=== PATIENT | male | born 1985 | race Caucasian/White ===

== ENCOUNTER 2016-12-07 09:36 | Emergency (ER) | payer SELFPAY ==
[~2016-12-07] VITALS: Ht 182.9 cm; Wt 109.0 kg
[2016-12-07 10:04] LABS: HEMATOCRIT 51.7 % (38.0-50.0); MCH 32.2 PG (29.0-34.0); MCV 89.4 FL (86-99); MEAN PLAT.VOLUME 8.8 uM^3 (9.0-12.4); PLATELET COUNT 218 K/uL (156-360); RED BLOOD COUNT 5.78 M/uL (4.00-5.50); WHITE BLOOD COUNT 9.4 K/uL (4.1-10.2)
[2016-12-07 10:13] LABS: CHLORIDE 105 mEq/L (99-109); POTASSIUM 4.1 mEq/L (3.7-5.4); SODIUM 138 mEq/L (136-147)
[2016-12-07 10:15] LABS: GLUCOSE 105 mg/dL (70-99)
[2016-12-07 10:16] LABS: ANION GAP 11 MEQ/L (2-14)
[2016-12-07 10:18] LABS: GFR ESTIMATE (CALCULATED) > 59 mL/min/
[2016-12-07 10:19] LABS: UREA NITROGEN (BUN) 11 mg/dL (9-23)
[2016-12-07 10:25] LABS: TROP-I INTERPRETATION NEGATIVE; TROPONIN-I < 0.01 ng/mL (0.0-0.30)
[2016-12-07 11:31] LABS: D-DIMER ELISA < 150.00 ng/mLDDU (<230)
[2016-12-07 13:08] LABS: TROP-I INTERPRETATION NEGATIVE; TROPONIN-I < 0.01 ng/mL (0.0-0.30)
[2016-12-07] MEDS ORDERED: PERCOCET 5/31 TABLET PO (14:21)
[2016-12-07 14:39] VITALS: BP 140/95
== END 2016-12-07 14:40 | disposition home or self-care (01) ==
LOC: EME 09:36
PROVIDERS: Emergency Medicine
DX: R07.89 Other chest pain (principal); R07.81 Pleurodynia; F17.200 Nicotine dependence, unspecified, uncomplicated
CPT/HCPCS: 71020; 80048; 84484; 85027; 85379; 93005; 99281; 99283